=== PATIENT | female | born 1975 | race Caucasian/White ===

== ENCOUNTER 2021-10-25 16:00 | Outpatient (CLI) | payer BC, SELFPAY ==
[2021-10-25 18:08] LABS: Chloride* 101 mmol/L (96-114); Sodium* 137 mmol/L (135-149)
[2021-10-25 18:09] LABS: Potassium* 3.5 mmol/L (3.6-5.1)
[2021-10-25 18:11] LABS: Carbon Dioxide* 26 mmol/L (20-32); Cholesterol* 194 mg/dL (90-199); Creatinine* 0.8 mg/dL (0.5-1.5); Estimated Glomerular Filt Rate 92 ml/min
[2021-10-25 18:12] LABS: Blood Urea Nitrogen* 19 mg/dL (5-24); Calcium* 9.3 mg/dL (8.4-10.6); Glucose* 95 mg/dL (60-115); HDL Cholesterol* 52 mg/dL (>=50); LDL Cholesterol Calculated 114 mg/dL (<100); Triglycerides* 141 mg/dL (40-149)
== END 2021-10-25 16:01 | disposition home or self-care (01) ==
PROVIDERS: PCP Family Medicine; Visit Provider Family Medicine
DX: I10 Essential (primary) hypertension (principal); E78.5 Hyperlipidemia, unspecified; E66.9 Obesity, unspecified
CPT/HCPCS: 80048; 80061

== ENCOUNTER 2022-05-30 08:28 | Outpatient (CLI) | payer BC, SELFPAY ==
--- NOTE | 2022-05-30 08:45 | CRLHL7_ITS ---
For Patients: As a result of the Century Cures Act, medical imaging exams and procedure reports are released immediately into your electronic medical record. You may view this report before your referring provider. If you have questions, please contact your health care provider. CLINICAL HISTORY: AUB TECHNIQUE: Real time, patino scale images were acquired of the pelvis using a transabdominal and transvaginal approach. Color Doppler analysis was performed of the ovaries. FINDINGS: Uterus measures 7.4 x 5.6 x 4 centimeters endometrium centimeters. The endometrium measures 1.3 cm. The right ovary measures 2.5 x 1.1 x 1.4 centimeters left ovary measures 3.3 x 1.3 x 1.6 centimeters. Both ovaries appear unremarkable. Blood flow to both ovaries. IMPRESSION: Normal pelvic ultrasound. Dictated by Bibi Hassan MD @ 05/30/2022 9:54:24 AM (Electronically Signed)
== END 2022-05-30 08:29 | disposition home or self-care (01) ==
PROVIDERS: PCP Family Medicine; Visit Provider Obstetrics & Gynecology
DX: N93.9 Abnormal uterine and vaginal bleeding, unspecified (principal)
CPT/HCPCS: 76830

== ENCOUNTER 2022-06-10 13:55 | Outpatient (CLI) | payer BC, SELFPAY | END 2022-06-10 13:56 | disposition home or self-care (01) | PROVIDERS: PCP Family Medicine; Visit Provider Family Medicine | DX: I10 Essential (primary) hypertension (principal); E78.5 Hyperlipidemia, unspecified; E66.9 Obesity, unspecified; N93.9 Abnormal uterine and vaginal bleeding, unspecified | CPT/HCPCS: 80048; 84443 ==

== ENCOUNTER 2022-06-16 06:03 | Day surgery (SDC) | payer BC, SELFPAY ==
[2022-06-16 06:27] VITALS: BMI 37.8
[2022-06-16] MEDS: LACTATED RINGERS 1000 ML 1,000 ML 100 ML IV (06:35)
[2022-06-16] MEDS: SODIUM CHLORIDE 0.9 % (FLUSH) 10 ML SYRINGE IVF (06:35)
[2022-06-16 06:40] VITALS: BP 132/86; PULSE 82; RESP 16; TEMP 36.5; O2SAT 97
[2022-06-16 06:41] LABS: Hemoglobin* 13.9 gm/dL (12.0-16.0)
[2022-06-16 06:46] LABS: Ur HCG Qualitative* Negative (Negative)
[2022-06-16 07:20] LABS: Creatinine* 0.8 mg/dL (0.5-1.5); Est. Creatinine Clearance* 84.54; Estimated Glomerular Filt Rate 91 ml/min
--- NOTE | 2022-06-16 08:12 | W.PM.GYNPROC ---
Procedure Note Time Seen by Provider: 07:00 Date Seen: 06/16/22 Procedure Details: Preoperative diagnosis: 47 year-old with abnormal uterine bleeding Postoperative diagnosis: Same Procedure: Hysteroscopy, dilation and curettage, and Mirena IUD insertion Anesthesia: Conscious sedation with paracervical block. Surgeon: Sadie Weber MD Estimated blood loss: <5 mL UOP: 250 cc Fluid deficit: 200 cc Specimen: Endometrial curettings to pathology. Findings: Exam under anesthesia: Cervix palpates normal - nabothian cyst noted at 12 o'clock. Uterus: retroverted position, 5 week size, mobile, without nodularity/masses palpable. Adnexa were without fullness or nodularity. On hysteroscopy: No overt intracavitary defect, polyps, or fibroids. Bilateral tubal ostia noted. Procedure: Crystal was taken to the operating where conscious sedation was found to be adequate. She was placed in the dorsal lithotomy position. An exam under anesthesia was performed with findings stated above. She was then prepped and draped in normal sterile manner. A bivalve metal speculum was placed in the vaginal canal. The cervix and vaginal canal appear normal. A paracervical block was placed using 1% Marcaine with epi: 10 mL injected at the 12, 4 and 8 o'clock positions on the cervix. The anterior lip of the cervix was then grasped with a long tenaculum. The cervix was dilated to Hegar 6. The uterus sounded to 7 cm. The hysteroscope advanced into the uterus and a diagnostic hysteroscopy was performed with findings stated above. Normal saline was used as the insufflation medium. Soft tissue shaver was used to obtain endometrial curetting circumferentially. Fluid deficit at the end of the procedure 200 mL. The hysteroscope was removed from the uterus and cervix. Attention was then turned toward Mirena IUD insertion. The IUD is loaded into the insertion tube, inserted to the sounded depth, and the IUD is deployed. Insertion tube was removed. Strings are trimmed to 3 cm. There were no complications with insertion. Tenaculum was removed from anterior cervical lip. Excellent hemostasis noted. Nothing was used for hemostasis. [place] speculum was then removed and the procedure was terminated. The patient tolerated the procedure well. Sponge, lap and instruments counts were correct at the end of the procedure. The patient was awakened from anesthesia and taken to the recovery area in stable condition.
--- NOTE | 2022-06-16 08:12 | W.ANESCHARGE ---
Anesthesia Charges Start Date/Time Anesthesia Start Date: 06/16/22 Anesthesia Start Time: 07:19 Stop Date/Time Anesthesia Stop Date: 06/16/22 Anesthesia Stop Time: 08:13
[2022-06-16 08:13] VITALS: BP 102/68; PULSE 79; RESP 16; TEMP 36.6; O2SAT 97
[2022-06-16 08:30] VITALS: BP 109/74; PULSE 69; RESP 16; O2SAT 100
[2022-06-16 08:45] VITALS: BP 109/81; PULSE 70; RESP 16; O2SAT 100
--- NOTE | 2022-06-16 08:56 | W.ANESCHARGE ---
Anesthesia Charges Start Date/Time Anesthesia Start Date: 06/16/22 Anesthesia Start Time: 07:19 Stop Date/Time Anesthesia Stop Date: 06/16/22 Anesthesia Stop Time: 08:13
[2022-06-16 09:00] VITALS: BP 104/85; PULSE 72; RESP 16; O2SAT 98
== END 2022-06-16 09:20 | disposition home or self-care (01) ==
PROVIDERS: PCP Family Medicine; Visit Provider Obstetrics & Gynecology
PROC: 0UDB8ZZ Extraction of Endometrium, Via Natural or Artificial Opening Endoscopic (ICD-10-PCS; CPT 58558; principal; 2022-06-16 07:15)
DX: N93.8 Other specified abnormal uterine and vaginal bleeding (principal); Z30.430 Encounter for insertion of intrauterine contraceptive device; N84.0 Polyp of corpus uteri
CPT/HCPCS: 58558; 58300; 00952; 36415; 81025; 82565; 85018; 88305; J1100; J1885; J2250; J2405; J2704; J3010; J3490; J7120; J7298

== ENCOUNTER 2022-08-23 17:54 | Outpatient (CLI) | payer BC, SELFPAY ==
--- NOTE | 2022-08-23 18:00 | CRLHL7_ITS ---
For Patients: As a result of the Cures Act, medical imaging exams and procedure reports are released immediately into your electronic medical record. You may view this report before your referring provider. If you have questions, please contact your health care provider. BILATERAL SCREENING MAMMOGRAM WITH COMPUTER-AIDED DETECTION AND TOMOSYNTHESIS TECHNIQUE: CC and MLO views were obtained. These mammographic images have been obtained using full-field digital technique. These mammographic images were interpreted with the benefit of computer-aided detection. Breast tomosynthesis was used in this interpretation. COMPARISON FILM: 02/10/20, 12/20/18, 12/01/17. FINDINGS: The breasts are almost entirely fatty. IMPRESSION: There is no radiographic evidence for malignancy. ASSESSMENT: BI-RADS Category 1: Negative RECOMMENDATION: Routine screening mammogram in 1 year. A lay language report of this examination will be provided to the patient. NITHYA DORADO M.D. Diagnostic/Nuclear Medicine Radiologist [email or web address] Transcribed: 08/24/2022, 6:[address]/Dictated by: Nithya Dorado MD @ 08/24/2022 8:52:00 AM (Electronically Signed)
== END 2022-08-23 17:55 | disposition home or self-care (01) ==
LOC: MAMMO 17:55
PROVIDERS: PCP Family Medicine; Visit Provider Obstetrics & Gynecology
DX: Z12.31 Encounter for screening mammogram for malignant neoplasm of breast (principal)
CPT/HCPCS: 77063; 77067

== ENCOUNTER 2022-12-07 15:43 | Outpatient (CLI) | payer BC, SELFPAY | END 2022-12-07 15:44 | disposition home or self-care (01) | LOC: LONREF 15:44 | PROVIDERS: PCP Family Medicine; Visit Provider Family Medicine | DX: E78.5 Hyperlipidemia, unspecified (principal); I10 Essential (primary) hypertension | CPT/HCPCS: 80061 ==

== ENCOUNTER 2023-10-03 15:45 | Outpatient (CLI) | payer BC, SELFPAY ==
--- NOTE | 2023-10-03 16:00 | CRLHL7_ITS ---
For Patients: As a result of the Cures Act, medical imaging exams and procedure reports are released immediately into your electronic medical record. You may view this report before your referring provider. If you have questions, please contact your health care provider. BILATERAL SCREENING MAMMOGRAM WITH COMPUTER-AIDED DETECTION AND TOMOSYNTHESIS TECHNIQUE: CC and MLO views were obtained. These mammographic images have been obtained using full-field digital technique. These mammographic images were interpreted with the benefit of computer-aided detection. Breast Tomosynthesis was used in this interpretation. COMPARISON FILM: 06/22/21, 01/09/18, 12/28/16. FINDINGS: The breasts are almost entirely fatty IMPRESSION: There is no radiographic evidence for malignancy. ASSESSMENT: BI-RADS Category 2: Benign RECOMMENDATION: Routine screening mammogram in 1 year. A lay language report of this examination will be provided to the patient. Ming Monterroso M.D. Diagnostic Radiologist [email or web address] Transcribed: 4:16 [email or web address] herndon/Dictated by: Ming Monterroso MD @ 10/04/2023 9:13:00 AM (Electronically Signed)
== END 2023-10-03 15:46 | disposition home or self-care (01) ==
LOC: MAMMO 15:47
PROVIDERS: PCP Family Medicine; Visit Provider Family Medicine
DX: Z12.31 Encounter for screening mammogram for malignant neoplasm of breast (principal)
CPT/HCPCS: 77063; 77067

== ENCOUNTER 2024-01-23 16:05 | Outpatient (CLI) | payer BC, SELFPAY | END 2024-01-23 16:06 | disposition home or self-care (01) | LOC: LKVREF 16:07 | PROVIDERS: PCP Family Medicine; Visit Provider Family Medicine | DX: E78.00 Pure hypercholesterolemia, unspecified (principal) | CPT/HCPCS: 80061 ==

== ENCOUNTER 2024-02-13 06:28 | Outpatient (CLI) | payer BC, SELFPAY ==
--- NOTE | 2024-02-13 07:43 | W.ANESCHARGE ---
Anesthesia Charges Start Date/Time Anesthesia Start Date: 02/13/24 Anesthesia Start Time: 07:12 Stop Date/Time Anesthesia Stop Date: 02/13/24 Anesthesia Stop Time: 07:40
--- NOTE | 2024-02-13 08:08 | W.ANESCHARGE ---
Anesthesia Charges Start Date/Time Anesthesia Start Date: 02/13/24 Anesthesia Start Time: 07:12 Stop Date/Time Anesthesia Stop Date: 02/13/24 Anesthesia Stop Time: 07:40
== END 2024-02-13 06:29 | disposition home or self-care (01) ==
LOC: OP CLINIC 06:30
PROVIDERS: PCP Family Medicine; Visit Provider Surgery
DX: Z12.11 Encounter for screening for malignant neoplasm of colon (principal); D12.3 Benign neoplasm of transverse colon; D12.7 Benign neoplasm of rectosigmoid junction; K57.30 Diverticulosis of large intestine without perforation or abscess without bleeding; Z86.0100 Personal history of colon polyps, unspecified
CPT/HCPCS: 00811; 45385; 88305; J2704

== ENCOUNTER 2024-11-14 15:20 | Outpatient (CLI) | payer BC, SELFPAY ==
--- NOTE | 2024-11-14 15:40 | CRLHL7_ITS ---
For Patients: As a result of the Century Cures Act, medical imaging exams and procedure reports are released immediately into your electronic medical record. You may view this report before your referring provider. If you have questions, please contact your health care provider. INDICATION: BILATERAL SCREENING MAMMOGRAM, ASYMPTOMATIC 49 Y/O FEMALE COMPARISON: 10/03/2023, 04/18/2023, 08/23/2022 TECHNIQUE: Digital mammogram in CC and MLO projections including computer-aided detection (CAD) and tomosynthesis. BREAST COMPOSITION: The breasts are almost entirely fatty. FINDINGS: No suspicious findings. ASSESSMENT: BI-RADS 1 Negative RECOMMENDATION: Annual screening mammogram. A lay language report of this examination will be provided to the patient. Dictated by: Ming Monterroso MD @ 11/15/2024 09:17:29 (Electronically Signed)
== END 2024-11-14 15:21 | disposition home or self-care (01) ==
LOC: MAMMO 15:21
PROVIDERS: PCP Family Medicine; Visit Provider Family Medicine
DX: Z12.31 Encounter for screening mammogram for malignant neoplasm of breast (principal)
CPT/HCPCS: 77063; 77067

== ENCOUNTER 2025-02-04 14:34 | Outpatient (CLI) | payer BC, SELFPAY | END 2025-02-04 14:35 | disposition home or self-care (01) | PROVIDERS: PCP Family Medicine; Visit Provider Family Medicine | DX: I10 Essential (primary) hypertension (principal); E78.00 Pure hypercholesterolemia, unspecified; Z13.29 Encounter for screening for other suspected endocrine disorder | CPT/HCPCS: 80048; 80061; 84439; 84443 ==